=== PATIENT | male | born 1955 | race Caucasian/White ===

== ENCOUNTER 2025-05-17 00:08 | Inpatient (IN) | payer MEDICARE, OTHER ==
[~2025-05-17] VITALS: Ht 167.6 cm; Wt 50.3 kg
[2025-05-17] VITALS (57 sets, daily range): BP systolic 86–144; BP diastolic 44–83; TEMP 98.5–99.9; O2SAT 100
[2025-05-17 00:45] LABS: *BILIRUBIN,URIN NEGATIVE (NEGATIVE); *CLARITY,URINE SLIGHTLY CLOUDY (CLEAR); *COLOR,URINE YELLOW (YELLOW); *KETONES,URINE NEGATIVE (NEGATIVE); *PROTEIN,URINE 2+ (NEGATIVE); *UROBILINOGEN,URINE 0.2 E.U./dl (NORMAL); LEUKOCYTE ESTERASE ,URINE 2+ (NEGATIVE); NITRITE, URINE NEGATIVE (NEGATIVE); UGLUCOSE NEGATIVE (NEGATIVE)
[2025-05-17] MEDS ORDERED: HALOPERIDOL LACTATE 5 MG/1 ML VIAL ONE (00:45)
[2025-05-17] MEDS ORDERED: diphenhydrAMINE 50 MG/1 ML VIAL ONE (00:45)
[2025-05-17] MEDS ORDERED: LORAZEPAM 2 MG/1 ML VIAL ONE ×2 (00:45→01:37)
[2025-05-17 00:47] LABS: *BLOOD, URINE TRACE (NEGATIVE)
[2025-05-17 00:52] LABS: *AMPHETAMINE, URINE NEGATIVE (NEGATIVE); *BARBITURATE, URINE NEGATIVE (NEGATIVE); *BENZODIAZEPINE, URINE NEGATIVE (NEGATIVE); *CANNABINOID, URINE NEGATIVE (NEGATIVE); *COCCAINE, URINE NEGATIVE (NEGATIVE); *OPIATE, URINE NEGATIVE (NEGATIVE); *PHENCYCLIDINE SCREEN,URINE NEGATIVE (NEGATIVE); FENTANYL, URINE NEGATIVE (NEGATIVE)
[2025-05-17] MEDS: diphenhydrAMINE 50 MG/1 ML VIAL IM ONE (00:54)
[2025-05-17] MEDS: LORAZEPAM 2 MG/1 ML VIAL IM ONE ×2 (00:54→01:39)
[2025-05-17] MEDS: HALOPERIDOL LACTATE 5 MG/1 ML VIAL IM ONE (00:54)
[2025-05-17 01:18] LABS: SQUAMOUS EPITHELIAL CELL,UR FEW /HPF (NONE SEEN)
[2025-05-17] MEDS ORDERED: INSU100V7 SUBCUT (01:38)
[2025-05-17] MEDS ORDERED: DULO30CA2 PO (01:38)
[2025-05-17] MEDS ORDERED: ARIP10TA57 PO (01:38)
[2025-05-17] MEDS ORDERED: CARB200C6 PO (01:38)
[2025-05-17] MEDS ORDERED: GLUC1AUT IM (01:38)
[2025-05-17] MEDS ORDERED: ALOG25TA2 PO (01:38)
[2025-05-17] MEDS ORDERED: BUSP5TAB3 PO (01:38)
[2025-05-17] MEDS ORDERED: ERGO500014 PO (01:38)
[2025-05-17 01:43] LABS: PLATELET COUNT (AUTO) 305 K/uL (152-348); RED BLOOD CELL COUNT(AUTO) 2.91 MIL/uL (4.06-5.63); RED CELL DISTRIBUTION WIDTH 14.9 % (12.1-16.2); WHITE BLOOD COUNT (AUTO) 7.6 K/uL (3.6-10.2)
[2025-05-17 01:46] LABS: CREATININE 0.6 mg/dL (0.6-1.3); SODIUM SERUM 142 mmol/L (136-145); UREA NITROGEN, BLOOD 13 mg/dL (7-18)
[2025-05-17 01:52] LABS: ASPARTATE AMINOTRANSFERASE 37 U/L (15-37); TOTAL PROTEIN, SERUM 7.6 g/dL (6.4-8.2)
[2025-05-17 02:03] LABS: ETHANOL < 3 MG/DL (0-10)
[2025-05-17] MEDS ORDERED: METH-806 PO (02:36)
[2025-05-17] MEDS ORDERED: INSU100V28 SUBCUT (02:36)
[2025-05-17] MEDS ORDERED: METF-440 PO (02:36)
[2025-05-17] MEDS ORDERED: BROM3DRO OP (02:36)
[2025-05-17] MEDS ORDERED: OMEP20TA5 PO (02:36)
[2025-05-17] MEDS ORDERED: PREG75CA76 PO (02:36)
[2025-05-17] MEDS ORDERED: TAMS0.4C34 PO (02:36)
[2025-05-17] MEDS ORDERED: QUET50TA24 PO (02:36)
[2025-05-17] MEDS ORDERED: LEVE1000 PO (02:36)
[2025-05-17] MEDS: IV NORMAL SALINE 1000 ML BAG IV ONE ×2 (04:47→05:40)
[2025-05-17] MEDS ORDERED: LABETALOL HCL 100 MG/20 ML VIAL ONE (04:48)
[2025-05-17] MEDS: LABETALOL HCL 100 MG/20 ML VIAL IV ONE (04:50)
[2025-05-17] MEDS ORDERED: CEFTRIAXONE 1 G VIAL ONE (05:38)
[2025-05-17] MEDS: CEFTRIAXONE 1 G in IV DEXTROSE 5% 50 ML IV ONE (05:40)
[2025-05-17] MEDS ORDERED: NOREPINEPHRINE 8MG/NS 250ML 250 ML IV ONE ×2 (06:07→08:28)
[2025-05-17] MEDS ORDERED: PROPOFOL 100 ML ONE ×2 (06:19→08:28)
[2025-05-17] MEDS: PROPOFOL 100 ML IV ONE (06:30)
[2025-05-17] MEDS ORDERED: ONDANSETRON 4 MG/2 ML VIAL IV PRN (08:00)
[2025-05-17] MEDS ORDERED: MAGNESIUM HYDROXIDE 30 ML LIQUID UDC PO PRN (08:00)
[2025-05-17] MEDS ORDERED: REMEDY ESSENTIAL ZINC PASTE 113 GM TP PRN (08:00)
[2025-05-17] MEDS ORDERED: NOREPINEPHRINE 8MG/NS 250ML 250 ML IV PRN (08:15)
[2025-05-17 08:30] LABS: SET RATE, BG 12.0; VT, ABG 500 mL
[2025-05-17] MEDS: NOREPINEPHRINE BITARTRATE 8 MG in IV DEXTROSE 5% 250 ML IV ONE (08:38)
[2025-05-17] MEDS ORDERED: PANTOPRAZOLE SODIUM 40 MG VIAL ONE (08:45)
[2025-05-17] MEDS: PANTOPRAZOLE SODIUM 40 MG VIAL IV SCH (08:45)
[2025-05-17] MEDS ORDERED: ENOXAPARIN SODIUM 40 MG/0.4 ML DISP.SYRIN SQ ONE (08:45)
[2025-05-17] MEDS: ENOXAPARIN SODIUM 40 MG/0.4 ML DISP.SYRIN SQ SCH (08:46)
[2025-05-17] MEDS: IV D5 1/2 NS 1000 ML 1,000 ML IV PRN (11:12)
[2025-05-17] MEDS: PROPOFOL 100 ML IV PRN (11:13)
[2025-05-17] MEDS: NOREPINEPHRINE 8MG/NS 250ML 250 ML IV PRN (11:14)
[2025-05-17] MEDS ORDERED: MAGN400O6 PO (11:41)
[2025-05-17] MEDS ORDERED: NA P133E RC (11:41)
[2025-05-17] MEDS ORDERED: BISA10SU61 RC (11:41)
[2025-05-17] MEDS ORDERED: ACET325T53 PO (11:41)
[2025-05-17] MEDS ORDERED: CARB200T8 PO (11:41)
[2025-05-17] MEDS ORDERED: BROM3DRO LEFTEYE (11:41)
[2025-05-17] MEDS ORDERED: ASPI-1420 PO (11:41)
[2025-05-17] MEDS ORDERED: OMEG1CAP PO (11:41)
[2025-05-17] MEDS ORDERED: FERR325T24 PO (11:41)
[2025-05-17] MEDS ORDERED: CYAN100096 PO (11:41)
[2025-05-17] MEDS ORDERED: ASCO500T85 PO (11:41)
[2025-05-17] MEDS ORDERED: TRAM50TA2 PO (11:41)
[2025-05-17] MEDS ORDERED: ACET-2154 PO (11:41)
[2025-05-17] MEDS ORDERED: DEXTROSE 50% 50 ML DISP.SYRIN IV PRN (12:30)
[2025-05-17] MEDS: BLOOD SUGAR DIAGNOSTIC 1 EACH STRIP VI SCH (13:29)
[2025-05-17] MEDS: INSULIN REGULAR, HUMAN 1000 UNIT/10 ML VIAL SQ PRN (13:36)
[2025-05-17] MEDS: IV NS 1000 ML 1,000 ML IV PRN (19:48)
[2025-05-17] MEDS: HEPARIN SODIUM,PORCINE 5,000 UNITS/ML VIAL IVP ONE (23:00)
[2025-05-17] MEDS: HEPARIN/D5W DRIP 500 ML IV PRN (23:02)
[2025-05-18] VITALS (95 sets, daily range): BP systolic 78–153; BP diastolic 44–78; TEMP 98.4–99.8; O2SAT 95–100
[2025-05-18 04:51] LABS: PLATELET COUNT (AUTO) 425 K/uL (152-348); RED BLOOD CELL COUNT(AUTO) 3.04 MIL/uL (4.06-5.63); RED CELL DISTRIBUTION WIDTH 15.2 % (12.1-16.2); WHITE BLOOD COUNT (AUTO) 12.9 K/uL (3.6-10.2)
[2025-05-18 05:03] LABS: CREATININE 0.8 mg/dL (0.6-1.3); SODIUM SERUM 143 mmol/L (136-145); UREA NITROGEN, BLOOD 15 mg/dL (7-18)
[2025-05-18] MEDS: CEFTRIAXONE 1 G in IV DEXTROSE 5% 50 ML IV SCH (05:57)
[2025-05-18] MEDS: HEPARIN SODIUM,PORCINE 5,000 UNITS/ML VIAL IVP ONE (05:59)
[2025-05-18 09:10] LABS: ABG BASE EXCESS -3.0 mmol/L (-2.0-3.0); ABG HCO3 21.0 mmol/L (21.0-28.0); ABG PCO2 33.4 mmHg (35.0-48.0); ABG PH 7.417 (7.350-7.450); ABG PO2 106.4 mmHg (83.0-108.0); ABG SITE RIGHT RADIAL; ABG TOTAL HEMOGLOBIN 9.5 G/dL (13.5-17.5); AaDO2 98.0 mmHg; FIO2 30.0 %; PEEP,BG 5.0 cmH20; SET RATE, BG 14.0; VT, ABG 500 mL
[2025-05-18] MEDS ORDERED: MAGNESIUM HYDROXIDE 30 ML LIQUID UDC PO PRN (10:30)
[2025-05-18] MEDS ORDERED: FLEET ENEMA 133 ML BOTTLE RC PRN (10:30)
[2025-05-18] MEDS ORDERED: MAGNESIUM HYDROXIDE 30 ML LIQUID UDC NG PRN (11:00)
[2025-05-18] MEDS ORDERED: PREGABALIN PO SCH (13:00)
[2025-05-18] MEDS: PREGABALIN 25 MG CAPSULE PO SCH (13:27)
[2025-05-18] MEDS ORDERED: CARBAMAZEPINE 200 MG TABLET PO SCH (17:00)
[2025-05-18] MEDS: QUETIAPINE FUMARATE 25 MG TABLET PO SCH (17:25)
[2025-05-18] MEDS: CARBAMAZEPINE 200 MG TABLET NG SCH (17:26)
[2025-05-18] MEDS: ARIPIPRAZOLE 10 MG TABLET PO SCH (17:27)
[2025-05-18] MEDS ORDERED: TAMSULOSIN HCL 0.4 MG CAP.SR.24H PO SCH (21:00)
[2025-05-18] MEDS ORDERED: METHOCARBAMOL 500 MG TABLET PO SCH (21:00)
[2025-05-18] MEDS: METHOCARBAMOL 500 MG TABLET NG SCH (21:20)
[2025-05-19] VITALS (68 sets, daily range): BP systolic 80–170; BP diastolic 45–69; TEMP 96.8–99; O2SAT 90–100
[2025-05-19 05:09] LABS: PLATELET COUNT (AUTO) 316 K/uL (152-348); RED BLOOD CELL COUNT(AUTO) 3.20 MIL/uL (4.06-5.63); RED CELL DISTRIBUTION WIDTH 15.5 % (12.1-16.2); WHITE BLOOD COUNT (AUTO) 8.6 K/uL (3.6-10.2)
[2025-05-19 05:21] LABS: CREATININE 0.6 mg/dL (0.6-1.3); SODIUM SERUM 146 mmol/L (136-145); UREA NITROGEN, BLOOD 7 mg/dL (7-18)
[2025-05-19 07:38] LABS: ABG BASE EXCESS -4.5 mmol/L (-2.0-3.0); ABG HCO3 19.1 mmol/L (21.0-28.0); ABG PCO2 29.5 mmHg (35.0-48.0); ABG PH 7.429 (7.350-7.450); ABG PO2 95.3 mmHg (83.0-108.0); ABG SITE LEFT BRACHIAL; ABG TOTAL HEMOGLOBIN 9.1 G/dL (13.5-17.5); AaDO2 97.5 mmHg; FIO2 30.0 %; PEEP,BG 5.0 cmH20; SET RATE, BG 4.0; VT, ABG 450 mL
[2025-05-19] MEDS: ASPIRIN 81 MG TAB.CHEW NG SCH (08:19)
[2025-05-19] MEDS: OMEGA-3 FATTY ACIDS/FISH OIL CAPSULE PO SCH (08:19)
[2025-05-19] MEDS: FERROUS SULFATE 300 MG/5 ML LIQUID UDC NG SCH (08:20)
[2025-05-19] MEDS: ASCORBIC ACID 500 MG TABLET NG SCH (08:20)
[2025-05-19] MEDS: CYANOCOBALAMIN 1,000 MCG TABLET NG SCH (08:21)
[2025-05-19] MEDS: DULOXETINE 30 MG CAPSULE.DR PO SCH (08:22)
[2025-05-19] MEDS ORDERED: CYANOCOBALAMIN 1,000 MCG TABLET PO SCH (09:00)
[2025-05-19] MEDS ORDERED: ASPIRIN EC 81 MG TABLET.DR PO SCH (09:00)
[2025-05-19] MEDS ORDERED: FERROUS SULFATE 325 MG TABEC PO SCH (09:00)
[2025-05-19] MEDS ORDERED: ASCORBIC ACID 500 MG TABLET PO SCH (09:00)
[2025-05-19] MEDS: MAGNESIUM SULFATE/D5W 100 ML IV SCH (09:28)
[2025-05-19] MEDS: POTASSIUM CHLORIDE 50 ML IV SCH (09:28)
[2025-05-19 09:52] LABS: ABG BASE EXCESS -4.3 mmol/L (-2.0-3.0); ABG HCO3 17.4 mmol/L (21.0-28.0); ABG PCO2 21.4 mmHg (35.0-48.0); ABG PH 7.528 (7.350-7.450); ABG PO2 139.4 mmHg (83.0-108.0); ABG SITE LEFT BRACHIAL; ABG TOTAL HEMOGLOBIN 8.2 G/dL (13.5-17.5); AaDO2 99.1 mmHg; FIO2 30.0 %; PEEP,BG 0.0 cmH20
[2025-05-19] MEDS ORDERED: NEUTRA PHOS PACKET PO ONE (11:30)
[2025-05-19] MEDS ORDERED: KETOROLAC TROMETHAMINE 15 MG INJ IM PRN (12:00)
[2025-05-19] MEDS: NEUTRA PHOS PACKET NG ONE (12:15)
[2025-05-19] MEDS: LORAZEPAM 2 MG/1 ML VIAL IV PRN (22:57)
[2025-05-20] VITALS (34 sets, daily range): BP systolic 98–137; BP diastolic 49–106; TEMP 98–98.2; O2SAT 88–99
[2025-05-20 05:42] LABS: PLATELET COUNT (AUTO) 198 K/uL (152-348); RED CELL DISTRIBUTION WIDTH 15.3 % (12.1-16.2); WHITE BLOOD COUNT (AUTO) 4.9 K/uL (3.6-10.2)
[2025-05-20 06:05] LABS: CREATININE 0.6 mg/dL (0.6-1.3); SODIUM SERUM 144 mmol/L (136-145); UREA NITROGEN, BLOOD 6 mg/dL (7-18)
[2025-05-20 06:08] LABS: RED BLOOD CELL COUNT(AUTO) 2.45 MIL/uL (4.06-5.63)
[2025-05-20] MEDS: POTASSIUM CHLORIDE 50 ML IV SCH (09:30)
[2025-05-20] MEDS: POTASSIUM PHOSPHATE MM 15 MMOL in IV NORMAL SALINE 250 ML IV ONE (10:28)
[2025-05-20] MEDS: MAGNESIUM SULFATE/D5W 100 ML IV SCH (10:29)
[2025-05-20] MEDS: BISACODYL 10 MG SUPP.RECT RC PRN (10:33)
[2025-05-20 14:48] LABS: ABG BASE EXCESS -5.4 mmol/L (-2.0-3.0); ABG HCO3 17.6 mmol/L (21.0-28.0); ABG PCO2 25.6 mmHg (35.0-48.0); ABG PH 7.456 (7.350-7.450); ABG PO2 56.7 mmHg (83.0-108.0); ABG SITE RIGHT RADIAL; ABG TOTAL HEMOGLOBIN 8.0 G/dL (13.5-17.5); AaDO2 91.6 mmHg; FIO2 50.0 %; FLOW, BLOOD GAS 6.00 L/min (0.00-30.00)
[2025-05-20] MEDS: FUROSEMIDE 40 MG/4 ML VIAL IV SCH (16:14)
[2025-05-20] MEDS ORDERED: FUROSEMIDE 40 MG/4 ML VIAL IV SCH (17:00)
[2025-05-20] MEDS ORDERED: MEROPENEM 500 MG in IV NORMAL SALINE 50 ML IV ONE (21:00)
[2025-05-20] MEDS: MEROPENEM 500 MG in IV NORMAL SALINE 50 ML IV SCH (22:00)
[2025-05-21] VITALS (28 sets, daily range): BP systolic 90–135; BP diastolic 43–66; TEMP 97.7–100.4; O2SAT 90–98
[2025-05-21 05:09] LABS: PLATELET COUNT (AUTO) 190 K/uL (152-348); RED BLOOD CELL COUNT(AUTO) 2.32 MIL/uL (4.06-5.63); RED CELL DISTRIBUTION WIDTH 15.2 % (12.1-16.2); WHITE BLOOD COUNT (AUTO) 5.2 K/uL (3.6-10.2)
[2025-05-21 05:23] LABS: CREATININE 0.6 mg/dL (0.6-1.3); SODIUM SERUM 146 mmol/L (136-145); UREA NITROGEN, BLOOD 8 mg/dL (7-18)
[2025-05-21 05:24] LABS: ASPARTATE AMINOTRANSFERASE 25 U/L (15-37); TOTAL PROTEIN, SERUM 5.4 g/dL (6.4-8.2)
[2025-05-21 05:40] LABS: IRON, SERUM 25 ug/dL (50-175)
[2025-05-21] MEDS: POTASSIUM CHLORIDE 20 MEQ TAB.PRT.SR PO ONE (05:45)
[2025-05-21] MEDS ORDERED: MAGNESIUM OXIDE 400 MG TABLET PO ONE (05:45)
[2025-05-21] MEDS ORDERED: MEROPENEM 500 MG in IV NORMAL SALINE 50 ML IV SCH (06:00)
[2025-05-21] MEDS: MAGNESIUM SULFATE/D5W 100 ML IV SCH (08:15)
[2025-05-21] MEDS: POTASSIUM CHLORIDE 50 ML IV SCH (08:15)
[2025-05-21] MEDS: MEROPENEM 500 MG in IV NORMAL SALINE 50 ML IV SCH (08:16)
[2025-05-21] MEDS: PANTOPRAZOLE SODIUM 40 MG VIAL IV SCH (08:18)
[2025-05-21] MEDS: POTASSIUM CHLORIDE 20 MEQ POWDER PACKET PO ONE (08:18)
[2025-05-21] MEDS: ACETAMINOPHEN 325 MG TABLET PO PRN (09:35)
[2025-05-21] MEDS ORDERED: POTASSIUM CHLORIDE 50 ML IV SCH (10:00)
[2025-05-21] MEDS: POTASSIUM PHOSPHATE MM 15 MMOL in IV NORMAL SALINE 250 ML IV ONE (10:40)
[2025-05-21] MEDS: LEVALBUTEROL HCL NEB 0.63 MG/3 ML NEBU NEB PRN (12:16)
[2025-05-21 15:21] LABS: PLATELET COUNT (AUTO) 182 K/uL (152-348); RED CELL DISTRIBUTION WIDTH 15.2 % (12.1-16.2); WHITE BLOOD COUNT (AUTO) 5.3 K/uL (3.6-10.2)
[2025-05-21 15:22] LABS: RED BLOOD CELL COUNT(AUTO) 2.36 MIL/uL (4.06-5.63)
[2025-05-21 15:27] LABS: CREATININE 0.7 mg/dL (0.6-1.3); SODIUM SERUM 145 mmol/L (136-145); UREA NITROGEN, BLOOD 11 mg/dL (7-18)
[2025-05-21] MEDS ORDERED: DEXTROSE 50% 50 ML DISP.SYRIN IV PRN (18:30)
[2025-05-21] MEDS: BLOOD SUGAR DIAGNOSTIC 1 EACH STRIP VI SCH (20:33)
[2025-05-21] MEDS: INSULIN REGULAR, HUMAN 300 UNITS/3 ML VIAL SQ PRN (20:35)
[2025-05-22] VITALS (27 sets, daily range): BP systolic 92–160; BP diastolic 49–75; TEMP 98.5–102.5; O2SAT 85–96
[2025-05-22] MEDS ORDERED: IBUPROFEN 400 MG TABLET ONE (01:03)
[2025-05-22] MEDS: IBUPROFEN 400 MG TABLET PO ONE (01:05)
[2025-05-22 05:01] LABS: PLATELET COUNT (AUTO) 167 K/uL (152-348); RED BLOOD CELL COUNT(AUTO) 2.62 MIL/uL (4.06-5.63); RED CELL DISTRIBUTION WIDTH 15.2 % (12.1-16.2); WHITE BLOOD COUNT (AUTO) 5.7 K/uL (3.6-10.2)
[2025-05-22 05:19] LABS: CREATININE 0.8 mg/dL (0.6-1.3); NT-PRO BNP 14563 pg/mL (0-125); SODIUM SERUM 144 mmol/L (136-145); UREA NITROGEN, BLOOD 13 mg/dL (7-18)
[2025-05-22] MEDS: QUETIAPINE FUMARATE 25 MG TABLET PO SCH (08:08)
[2025-05-22] MEDS: LIDOCAINE 5% PATCH TD SCH (08:11)
[2025-05-22] MEDS: POTASSIUM CHLORIDE 50 ML IV SCH (08:43)
[2025-05-22] MEDS: INSULIN REGULAR, HUMAN 1000 UNIT/10 ML VIAL SQ PRN (08:45)
[2025-05-22] MEDS ORDERED: LIDOCAINE 5% PATCH TD SCH (09:00)
[2025-05-22] MEDS ORDERED: ERGOCALCIFEROL 50,000 UNIT CAPSULE PO SCH (09:00)
[2025-05-22] MEDS: INSULIN GLARGINE,HUM 300 UNITS/3 ML CARTRIDGE SQ SCH (11:31)
[2025-05-22] MEDS: MORPHINE SULFATE 2 MG/1 ML DISP.SYRIN IV PRN (12:21)
[2025-05-23] VITALS (30 sets, daily range): BP systolic 89–151; BP diastolic 49–79; TEMP 98.9–102; O2SAT 84–98
[2025-05-23 05:15] LABS: PLATELET COUNT (AUTO) 196 K/uL (152-348); RED BLOOD CELL COUNT(AUTO) 2.84 MIL/uL (4.06-5.63); RED CELL DISTRIBUTION WIDTH 15.5 % (12.1-16.2); WHITE BLOOD COUNT (AUTO) 8.8 K/uL (3.6-10.2)
[2025-05-23 05:37] LABS: ASPARTATE AMINOTRANSFERASE 28 U/L (15-37); CREATININE 0.7 mg/dL (0.6-1.3); NT-PRO BNP 10796 pg/mL (0-125); SODIUM SERUM 145 mmol/L (136-145); TOTAL PROTEIN, SERUM 6.2 g/dL (6.4-8.2); UREA NITROGEN, BLOOD 15 mg/dL (7-18)
[2025-05-23] MEDS: MAGNESIUM SULFATE/D5W 100 ML IV SCH (10:25)
[2025-05-23] MEDS: POTASSIUM CHLORIDE 20 MEQ POWDER PACKET PO ONE (11:33)
[2025-05-23] MEDS: FUROSEMIDE 40 MG/4 ML VIAL IV SCH (16:24)
[2025-05-23] MEDS: PANTOPRAZOLE SODIUM 40 MG TABLET.DR PO SCH (17:05)
[2025-05-24] VITALS (26 sets, daily range): BP systolic 92–123; BP diastolic 41–64; TEMP 98.4–99.3; O2SAT 87–97
[2025-05-24 04:19] LABS: PLATELET COUNT (AUTO) 203 K/uL (152-348); RED BLOOD CELL COUNT(AUTO) 2.66 MIL/uL (4.06-5.63); RED CELL DISTRIBUTION WIDTH 15.7 % (12.1-16.2); WHITE BLOOD COUNT (AUTO) 6.5 K/uL (3.6-10.2)
[2025-05-24 04:32] LABS: CREATININE 0.6 mg/dL (0.6-1.3); SODIUM SERUM 142 mmol/L (136-145); UREA NITROGEN, BLOOD 14 mg/dL (7-18)
[2025-05-24] MEDS: VANCOMYCIN IV 1,000 MG in IV DEXTROSE 5% 250 ML IV SCH (10:36)
[2025-05-24] MEDS: POTASSIUM CHLORIDE 50 ML IV SCH (10:42)
[2025-05-25] VITALS (20 sets, daily range): BP systolic 100–124; BP diastolic 45–69; TEMP 98.3–99.4; O2SAT 90–99
[2025-05-25 07:20] LABS: PLATELET COUNT (AUTO) 200 K/uL (152-348); RED BLOOD CELL COUNT(AUTO) 2.65 MIL/uL (4.06-5.63); RED CELL DISTRIBUTION WIDTH 15.1 % (12.1-16.2); WHITE BLOOD COUNT (AUTO) 4.0 K/uL (3.6-10.2)
[2025-05-25 08:02] LABS: ASPARTATE AMINOTRANSFERASE 38 U/L (15-37); CREATININE 0.8 mg/dL (0.6-1.3); LACTIC ACID 2.4 mmol/L (0.4-2.0); SODIUM SERUM 138 mmol/L (136-145); TOTAL PROTEIN, SERUM 5.6 g/dL (6.4-8.2); UREA NITROGEN, BLOOD 21 mg/dL (7-18)
[2025-05-25] MEDS: POTASSIUM CHLORIDE 20 MEQ TAB.PRT.SR PO ONE (10:38)
[2025-05-25 15:37] LABS: HIV-1/2 ANTIBODY NON REACTIVE (NONREACTIVE)
[2025-05-25] MEDS: HYDROMORPHONE 1 MG/1 ML DISP.SYRIN IV PRN (22:43)
[2025-05-26] VITALS: BP 106/42; TEMP 98.8; O2SAT 95
[2025-05-26 04:00] VITALS: BP 107/50; TEMP 99.1; O2SAT 98
[2025-05-26 06:55] LABS: PLATELET COUNT (AUTO) 231 K/uL (152-348); RED BLOOD CELL COUNT(AUTO) 2.81 MIL/uL (4.06-5.63); RED CELL DISTRIBUTION WIDTH 15.3 % (12.1-16.2); WHITE BLOOD COUNT (AUTO) 5.7 K/uL (3.6-10.2)
[2025-05-26 07:25] LABS: CREATININE 0.5 mg/dL (0.6-1.3); NT-PRO BNP 3621 pg/mL (0-125); SODIUM SERUM 139 mmol/L (136-145); UREA NITROGEN, BLOOD 19 mg/dL (7-18)
[2025-05-26 07:50] VITALS: BP 117/58; TEMP 97.7; O2SAT 95
[2025-05-26] MEDS ORDERED: FUROSEMIDE 20 MG/2 ML VIAL IVP SCH (09:00)
[2025-05-26] MEDS ORDERED: FUROSEMIDE 40 MG/4 ML VIAL IV SCH (09:00)
[2025-05-26 11:41] VITALS: BP 103/46; TEMP 98.5; O2SAT 95
[2025-05-26] MEDS: FUROSEMIDE 20 MG/2 ML VIAL IVP SCH (12:30)
[2025-05-26 16:01] VITALS: BP 116/54; TEMP 97.8; O2SAT 98
[2025-05-26] MEDS ORDERED: ALBUTEROL SULFATE 1.25 MG/3 ML NEBU NEB PRN (17:00)
[2025-05-26 19:00] VITALS: BP 105/49; TEMP 97.7; O2SAT 96
[2025-05-27] VITALS (11 sets, daily range): BP systolic 108–136; BP diastolic 44–66; TEMP 97.5–98.6; O2SAT 95–100
[2025-05-27 07:27] LABS: PLATELET COUNT (AUTO) 252 K/uL (152-348); RED BLOOD CELL COUNT(AUTO) 2.63 MIL/uL (4.06-5.63); RED CELL DISTRIBUTION WIDTH 15.0 % (12.1-16.2); WHITE BLOOD COUNT (AUTO) 4.4 K/uL (3.6-10.2)
[2025-05-27 07:51] LABS: ASPARTATE AMINOTRANSFERASE 34 U/L (15-37); CREATININE 0.5 mg/dL (0.6-1.3); NT-PRO BNP 2484 pg/mL (0-125); SODIUM SERUM 136 mmol/L (136-145); TOTAL PROTEIN, SERUM 6.0 g/dL (6.4-8.2); UREA NITROGEN, BLOOD 15 mg/dL (7-18)
[2025-05-28] VITALS (7 sets, daily range): BP systolic 105–142; BP diastolic 40–63; TEMP 97.5–98.4; O2SAT 95–100
[2025-05-28 07:08] LABS: PLATELET COUNT (AUTO) 302 K/uL (152-348); RED BLOOD CELL COUNT(AUTO) 2.71 MIL/uL (4.06-5.63); RED CELL DISTRIBUTION WIDTH 15.0 % (12.1-16.2); WHITE BLOOD COUNT (AUTO) 4.7 K/uL (3.6-10.2)
[2025-05-28 07:21] LABS: CREATININE 0.7 mg/dL (0.6-1.3); SODIUM SERUM 133 mmol/L (136-145); UREA NITROGEN, BLOOD 22 mg/dL (7-18)
[2025-05-28] MEDS: FUROSEMIDE 40 MG TABLET PO SCH (08:18)
[2025-05-29] MEDS: LORAZEPAM 2 MG/1 ML VIAL IV ONE (00:15)
[2025-05-29 04:00] VITALS: BP 127/53; TEMP 97.9; O2SAT 95
[2025-05-29 06:57] LABS: PLATELET COUNT (AUTO) 304 K/uL (152-348); RED BLOOD CELL COUNT(AUTO) 2.67 MIL/uL (4.06-5.63); RED CELL DISTRIBUTION WIDTH 14.8 % (12.1-16.2); WHITE BLOOD COUNT (AUTO) 4.6 K/uL (3.6-10.2)
[2025-05-29 07:16] LABS: CREATININE 0.6 mg/dL (0.6-1.3); SODIUM SERUM 139 mmol/L (136-145); UREA NITROGEN, BLOOD 18 mg/dL (7-18)
[2025-05-29] MEDS: CLOPIDOGREL 75 MG TABLET PO SCH (08:29)
[2025-05-29] MEDS: METOPROLOL SUCCINATE XL 25 MG TAB.SR.24H PO SCH (08:29)
[2025-05-29] MEDS: ATORVASTATIN 40 MG TABLET PO SCH (08:30)
[2025-05-29] MEDS ORDERED: FURO40TA5 PO (11:01)
[2025-05-29] MEDS ORDERED: METO-356 PO (11:01)
[2025-05-29] MEDS ORDERED: CLOP75TA33 PO (11:01)
[2025-05-29] MEDS ORDERED: EMPA10TA PO (11:01)
[2025-05-29] MEDS ORDERED: ATOR40TA PO (11:01)
[2025-05-29] MEDS ORDERED: SPIR25TA PO (11:01)
[2025-05-29 11:31] VITALS: BP 117/53; TEMP 97.4; O2SAT 97
[2025-05-29 16:13] VITALS: BP 132/62; TEMP 97.5; O2SAT 97
== END 2025-05-29 17:15 | DRG 208 ==
LOC: ER 00:19 → CCUOV 08:12 → ICU IN 08:12 → UNDOADMIN 08:12 → CCU 11:07 → TELE3 05-25 19:09 → MEDSURG3 05-28 22:00
PROVIDERS: ADMIT Student in an Organized Health Care Education/Training Program; ATTEND Student in an Organized Health Care Education/Training Program
PROC: 5A1945Z Respiratory Ventilation, 24-96 Consecutive Hours (ICD-10-PCS; principal; 2025-05-17)
PROC: 0BH17EZ Insertion of Endotracheal Airway into Trachea, Via Natural or Artificial Opening (ICD-10-PCS; 2025-05-17)
PROC: 06HY33Z Insertion of Infusion Device into Lower Vein, Percutaneous Approach (ICD-10-PCS; 2025-05-17)
PROC: 30233N1 Transfusion of Nonautologous Red Blood Cells into Peripheral Vein, Percutaneous Approach (ICD-10-PCS; 2025-05-21)
DX: J96.01 Acute respiratory failure with hypoxia (principal); A41.9 Sepsis, unspecified organism; E43 Unspecified severe protein-calorie malnutrition; J69.0 Pneumonitis due to inhalation of food and vomit; G92.8 Other toxic encephalopathy; I21.A1 Myocardial infarction type 2; I50.21 Acute systolic (congestive) heart failure; N39.0 Urinary tract infection, site not specified; E87.0 Hyperosmolality and hypernatremia; J98.11 Atelectasis; I50.22 Chronic systolic (congestive) heart failure; T42.4X5A Adverse effect of benzodiazepines, initial encounter; T43.4X5A Adverse effect of butyrophenone and thiothixene neuroleptics, initial encounter; T45.0X5A Adverse effect of antiallergic and antiemetic drugs, initial encounter; Y92.238 Other place in hospital as the place of occurrence of the external cause; F29 Unspecified psychosis not due to a substance or known physiological condition; Z95.1 Presence of aortocoronary bypass graft; G40.909 Epilepsy, unspecified, not intractable, without status epilepticus; I25.10 Atherosclerotic heart disease of native coronary artery without angina pectoris; Z88.0 Allergy status to penicillin; Z89.611 Acquired absence of right leg above knee; I27.20 Pulmonary hypertension, unspecified; E88.09 Other disorders of plasma-protein metabolism, not elsewhere classified; Z78.1 Physical restraint status; D64.9 Anemia, unspecified; E83.42 Hypomagnesemia; E83.39 Other disorders of phosphorus metabolism; E87.6 Hypokalemia; E11.65 Type 2 diabetes mellitus with hyperglycemia; I07.1 Rheumatic tricuspid insufficiency; K21.9 Gastro-esophageal reflux disease without esophagitis; Z53.20 Procedure and treatment not carried out because of patient's decision for unspecified reasons; T81.31XD Disruption of external operation (surgical) wound, not elsewhere classified, subsequent encounter; M15.9 Polyosteoarthritis, unspecified; F25.0 Schizoaffective disorder, bipolar type; Z79.4 Long term (current) use of insulin; Z79.899 Other long term (current) drug therapy
CPT/HCPCS: 36415; 36600; 71045; 82803; 83550; 83605; 83735; 84100; 84153; 84443; 84478; 84484; 85025; 85730; 86140; 86803; 86850; 86900; 86901; 86920; 87040; 87086; 87806; 93005; 93307; 94002; 94003; 94640; 94664; 94760; 99082-TC; A4606; A4663; G0378; G0480; J0696; J1171; J1200; J1630; J1644; J1650; J1815; J1938; J1953; J2060; J2185; J2270; J2470; J3370; J3475; J3480; J3490; J7040; J7050; J7614; P9016